=== PATIENT | female | born 1970 | race Hispanic/Latino ===

== ENCOUNTER 2016-08-21 11:48 | Day surgery (SDC) | payer OTHER ==
[~2016-08-21] VITALS: Ht 154.9 cm; Wt 90.7 kg
[2016-08-21] VITALS (14 sets, daily range): BP systolic 122–138; BP diastolic 51–87; PULSE 16–91; RESP 11–16; O2SAT 90–100
[~2016-08-21 11:48] MED LIST: BETA60LO4 TOP; IBUP200C PO; KETO120S3 TP; LEVO175T5 PO; Lactated Ringer's 1,000 ML IV SCH; MAGN400T23 PO; MISO200T4 VAGINAL; SUMA50TA31 PO; SUMA6PEN SQ; VIT D PO
[2016-08-21] MEDS ORDERED: Ketamine 10 mg/mL 20 mL Inj ONE (11:49)
[2016-08-21] MEDS ORDERED: Dexamethasone 4 mg/mL Inj ONE (11:49)
[2016-08-21] MEDS ORDERED: fentaNYL-PF 50 mCg/mL 2 mL Inj ONE (11:49)
[2016-08-21] MEDS ORDERED: Propofol 10,000 mCg/mL 20 mL Inj ONE (11:49)
[2016-08-21] MEDS ORDERED: Ondansetron 2 mg/mL 2 mL Inj ONE (11:49)
[2016-08-21] MEDS ORDERED: Lactated Ringer's 1,000 ML IV ONE ×2 (12:27→15:33)
[2016-08-21] MEDS ORDERED: Lactated Ringer's 500 ML IV PRN (14:16)
[2016-08-21] MEDS ORDERED: Lactated Ringer's 1,000 ML IV SCH (14:16)
--- NOTE | 2016-08-21 14:19 | PCM.HPANE ---
Patient Data Date of Service: Aug 21, 2016 Surgeon Admitting Provider: Attending Provider:Rere Roldan MD Primary Care Physician:Renata Paredes MD Other Provider:Nubia Mahajan Anesthesia Reason for Visit Menorrhagia Ht/WT & BMI Height (Feet): 5 Height (Inches): 1.00 Weight (Kilograms): 90.718 Body Mass Index 37.00 Allergies Coded Allergies: No Known Allergies (Verified Allergy, Unknown, 08/19/16) Past Anesthesia History Anesthesia History: Denies:: Anesthesia Reactions, Malignant Hyperthermia Diabetes History Hx Diabetes?: No MRSA MRSA: No Medications Home Meds Incl Beta Nahum: No Reported Medications Magnesium Oxide (Mag-Oxide)400 Mg Zeuidm055 Mg PO DAILY 08/19/16 Sumatriptan Succinate (Imitrex)6 Mg/0.5 Ml Pen.injctr6 Mg SQ PRN 08/19/16 Sumatriptan Succinate (Imitrex)50 Mg Lzpqtp68 Mg PO PRN MR IN 2H PRN 08/19/16 Misoprostol 200 Mcg Nhcxks927 Mcg VAGINAL 6H PRIOR TO OR 08/19/16 Levothyroxine 175 Mcg Gverop317 Mcg PO DAILY Ref 0 11/16/15 Ibuprofen 200 Mg Jdznujp850 Mg PO TID PRN For Pain Ref 0 05/03/15 [Vit D] No Conflict Check2,000 Iu PO DAILY 05/03/15 Betamethasone Valerate (Betamethasone Valerate 0.1% Lotion)60 Ml Lotion1 Appl TOP BID Ref 0 08/24/14 Ketoconazole 120 Ml Jtuoetq719 Ml TP 2X/WEEK 2% 08/24/14 Discontinued Reported Medications Omeprazole 20 Mg Capsule.dr40 Mg PO DAILY Ref 0 02/21/16 Clobetasol Propionate 15 Gm Oint...g.15 Gm TP 08/24/14 History History of ENT Problems?: Yes HEENT History: Positive for:: Hearing Problem (CHRONIC) Other HEENT Pertinent History: BRUXISM-USES MOUTH GUARD Hx of Heart Problems?: No Cardiovascular History: Denies:: Heart Murmur Hypertension Hx of Respiratory Problem?: Yes Respiratory History: Positive for:: Use of C-PAP Machine (KALEB+ USES MOUTHGUARD SLEEP STUDY 04/2016 ) Hx Neurologic Problems?: Yes Neurological History: Positive for:: Dizziness Headaches Hx of GI Problems?: No Hx of Problems?: No Female Hx: Denies:: Currently (tubal) Endometriosis Skin History: Positive for:: History Skin Disorders? (psoriasis) Denies:: Pressure Ulcers Hx Musculoskeletal Problems?: No Hx of Psycho/Social Problems?: No Hx Surgeries?: Yes (LT THYROID LOBECTOMY,TOTAL THYROIDECTOMY,BTL,HYST) Hx Any Other Health Problems?: Yes Other History: Positive for:: Cancer (THYROID CA) Hospitalization Thyroid Disease (S/P TOTAL THYROIDECTOMY AFTER LT THYROID LOBECTOMY) Hx Diabetes: No Hx Alcohol Use: Yes (OCCASIONALLY)Hx Substance Use: No Smoking Status: Never Smoker Have You Smoked inLast 12 mo: No Stop/Bang S-Snoring: Do You Snore Loudly: No T-Tired: feel tired, fatigued: No O-Obsered: Observed not breath: No P-Blood Pressure: treated: No B- Body Mass Index > 35 kg/m2: Yes A- Age over 50: No N- Neck Large Circumference: No G- Gender Male: No KALEB Total Score: 1 Risk Assessment Category Category 1A: Patient has history of documented sleep apnea, and HAS NOT received any narcotic, sedative or anesthesia administration during this stay. Category 1B: Patient has history of documented sleep apnea, and HAS received any narcotic , sedative or anesthesia administration during this stay Category 2: Patient has SUSPECTED Obstructive Sleep Apnea, and HAS received any narcotic , sedative or anesthesia administration during this stay. Category 3: Patient has SUSPECTED Obstructive Sleep Apnea and HAS NOT received narcotic, sedative or anesthesia administration during this stay. Category 4: Outpatient in Procedural Areas with known sleep apnea or who screen positive for High Risk via the STOP/BANG questionnaire. Exam Exam Vital Signs Vital Signs Date Time Temp Pulse Resp B/P Pulse Ox O2 Delivery O2 Flow Rate FiO2 08/21/16 12:26 36.6 72 14 138/73 99 Room Air General Appearance: Alert, Oriented X3, Cooperative, No Acute Distress, Mild Distress HEENT/AIRWAY: MP 3 (large tongue) Lungs: Clear to Auscultation Heart: Exam Unremarkable, Normal S1, Normal S2 Meds/Labs/Diagnostics Admission Meds Current Medications Lactated Ringer's (Lr) 1,000 ml @ ud STK-MED ONCE IV Last administered on 08/21t 12:27; Start 08/21/16 at 12:27; Stop 08/21/16 at 12:28; Status DC Plan Impression Patient chart reviewed, patient interviewed and anesthestic plan with risks, benefits, and alternatives discussed, and informed consent obtained. NPO Status: confirmed before mn ASA Physical Status: ASA2 Mod Systemic Disease Anesthetic Plan: GA Bene/Risks/Altern/Consents: Yes HP Complete Prior to Induction: Yes Miguel A Duffy DO Aug 21, 2016 14:19
[2016-08-21] MEDS ORDERED: Atropine 0.4 mg/mL Inj IVPUSH PRN (14:20)
[2016-08-21] MEDS ORDERED: HYDROmorphone 1 mg/mL Inj IVPUSH PRN (14:20)
[2016-08-21] MEDS ORDERED: Dexamethasone 4 mg/mL Inj IVPUSH PRN (14:20)
[2016-08-21] MEDS ORDERED: MetoCLOpramide 5 mg/mL 2 mL Inj IVPUSH PRN (14:20)
[2016-08-21] MEDS ORDERED: EPHEDrine Sulfate 50 mg/mL Inj IVPUSH PRN (14:20)
[2016-08-21] MEDS ORDERED: fentaNYL-PF 50 mCg/mL 2 mL Inj IVPUSH PRN (14:20)
[2016-08-21] MEDS ORDERED: Labetalol 5 mg/mL 4 mL Inj IV PRN (14:20)
[2016-08-21] MEDS ORDERED: Ondansetron 2 mg/mL 2 mL Inj IVPUSH PRN ×2 (14:20→14:35)
[2016-08-21] MEDS ORDERED: Phenylephrine 10,000 mCg/mL Inj IVPUSH PRN (14:20)
[2016-08-21] MEDS ORDERED: diphenhydrAMINE 25 mg Capsule PO PRN (14:35)
[2016-08-21] MEDS ORDERED: oxyCODONE-Acetamin 5-325 mg Tablet PO PRN (14:35)
--- NOTE | 2016-08-21 15:06 | PCM.ANEP1 ---
Post Anesthesia Phase 1 PACU Phase 1 Assessment Date of Service: Aug 21, 2016 Vital Signs Vital Signs Date Time Temp Pulse Resp B/P Pulse Ox O2 Delivery O2 Flow Rate FiO2 08/21/16 14:40 81 15 129/77 98 Room Air 08/21/16 14:35 89 15 129/76 100 Simple Mask 8 08/21/16 14:34 36.7 91 16 133/74 100 Simple Mask 8 08/21/16 12:26 36.6 72 14 138/73 99 Room Air Anesthetic Administered: GA Level of Alertness: Awake, talking ONOFRE's with Equal Strength: Yes Pain: No Nausea or Vomiting: No Oxygen Delivery: Simple Mask (6l) Lungs: Clear to Auscultation Dermatome Level: Full Sensation Miguel A Duffy DO Aug 21, 2016 15:06
--- NOTE | 2016-08-21 15:21 | PCM.ANEP2 ---
Post Anesthesia Evaluation ASA/CMS Post Anesthesia Date of Service: Aug 21, 2016 VS in Patient's Normal Range?: Yes Resp Stable; Airway Patent?: Yes CV Function & Hydration Stable: Yes Mental Status Recovered?: Yes Pain control Satisfactory?: Yes N/V Control Satisfactory?: Yes Miguel A Duffy DO Aug 21, 2016 15:21
--- NOTE | 2016-08-21 16:27 | OP ---
[address] [address] OPERATIVE REPORT PATIENT: HELENE PADILLA : 1970 MR#: [id number] ADMIT: 08/21/2016 JOB ID: [id number] DATE OF SURGERY: 08/21/2016 PREOPERATIVE DIAGNOSIS(ES): A 45-year-old 5, para 5 with seven month history of menorrhagia, linear blood flow at endometrium with endometrial stripe 10 mm. Endometrial biopsy at the office was negative for hyperplasia or cancer. The patient opted for definitive diagnosis with a hysteroscopy D and C. POSTOPERATIVE DIAGNOSIS(ES): A 45-year-old 5, para 5 with seven month history of menorrhagia, linear blood flow at endometrium with endometrial stripe 10 mm. Endometrial biopsy at the office was negative for hyperplasia or cancer. The patient opted for definitive diagnosis with a hysteroscopy D and C. PROCEDURE: Hysteroscopy dilatation and curettage. SURGEON: Rere Roldan MD FLUE LINING DIPPER: None. ANESTHESIA: General endotracheal. ESTIMATED BLOOD LOSS: 50 cc. IV FLUIDS: 950 cc of crystalloid. URINE OUTPUT: 100 cc of clear urine at the beginning of the procedure. INTRAOPERATIVE FINDINGS: Examination under anesthesia revealed no adnexal masses appreciated bilaterally, mid position uterus around 10 weeks size. Uterus sounded to 9 cm during surgery. Visualized left patent tubal ostia. The right tubal ostia was not visualized. Hypertrophic endometrium towards the fundus, especially around the areas of the tubal ostia bilaterally. SPECIMEN REMOVED: Cervical endometrial curettage sent to Pathology. COMPLICATIONS: None. The distention media for hysteroscopy was normal saline with a deficit of 200 cc at the end of the procedure. DESCRIPTION OF PROCEDURE: Risks, benefits , alternatives of the procedure discussed with the patient. Informed consent signed. The patient moved to the OR with IV running. After general anesthesia was found to be adequate, the patient was examined with the above findings. The patient then was prepped and draped in the normal sterile fashion. A weighted speculum inserted into the patient's vagina. Anterior lip of the cervix grasped with a single-tooth tenaculum. The cervix was dilated up to Hegar dilator #6 easily as the cervix was primed with misoprostol preoperatively. Then the uterus was sounded to 9 cm with the uterine sound. MyoSure hysteroscope was introduced into the patient's uterus without difficulty. Under direct visualization, the above findings were noted. The scope was removed. Cervical curettage and endometrial curettage were collected. A second look with the scope confirmed adequate curettage of the endometrium. The left tubal ostia was visualized easily. Could not visualize the right tubal ostia. All instruments were removed from the patient's uterus. Monsel solution used to control bleeding at the single-tooth tenaculum insertion site. Good hemostasis assured. The patient tolerated the procedure well. Sponge and instrument counts were correct x2. The patient was recovered in a stable condition. Dr. Roldan was present and scrubbed for the entire procedure. NESTOR
--- NOTE | 2016-08-22 13:44 | PATH ---
SURGICAL PATHOLOGY Attending Physician:Rere Roldan MD CASE STATUS: Signed Out PATIENT NAME: HELENE PADILLA PID: [id number] : 1970 DATE COLLECTED:08/21/2016 22:54 SPECIMEN: 1: Cervix, Biopsy 2: Endometrium, Curettage CLINICAL HISTORY: MENORRHAGIA 1). CERVICAL CURETTINGS 2). ENDOMETRIAL CURETTINGS FINAL DIAGNOSIS: 1.CERVICAL CURETTINGS: FRAGMENTS OF ENDOCERVICAL EPITHELIUM, NEGATIVE FOR ATYPIA. FRAGMENTS OF BENIGN ENDOMETRIUM CONSISTENT WITH ORIGIN IN LOWER UTERINE SEGMENT, NEGATIVE FOR ATYPIA. 2.ENDOMETRIAL CURETTINGS: PROLIFERATIVE ENDOMETRIUM WITH DISORDERED ARCHITECTURE AND CHANGES OF GLANDULAR AND STROMAL BREAKDOWN. NEGATIVE FOR ATYPIA AND MALIGNANCY. ICD10 CODE N93.8 GROSS DESCRIPTION: The specimen is received in two formalin filled containers labeled with the patient's name. 1). The specimen is sublabeled "cervical curettings" and consists of a proximately a 0.75 cc aggregate of tissue, mucoid material and blood which is entirely submitted in cassette 1A. 2). The specimen is sublabeled "endometrial curettings" and consists of a proximately a 0.25 cc aggregate of tissue, mucoid material and blood which is entirely submitted in cassette 2A. 08/21/2016 [facility] MICRO DESCRIPTION: See diagnosis. ICD-9 CODES: CPT CODES: 1: 89153 2: 61113 Electronically Signed Out Bacilio Guillen MD [facility] Pathology [facility] [address] [facility], [place] [address] Technical component performed at [facility], [address] [place] [address] Ave[address], [place], [address]
== END 2016-08-21 23:59 | disposition home or self-care (01) ==
LOC: SAS 11:48
PROVIDERS: ATTEND Obstetrics & Gynecology
DX: N92.0 Excessive and frequent menstruation with regular cycle (principal)
CPT/HCPCS: 58558; 88305; J1100; J1170; J2250; J2405; J3010; J7120